=== PATIENT | male | born 1960 | race Caucasian/White ===

== ENCOUNTER 2016-08-14 11:01 | Day surgery (SDC) | payer BC ==
[~2016-08-14 11:01] MED LIST: CELEBREX200 M1 PO; HYDROCODON-ACE1 EA17 PO; NEURONTIN300 M1 PO; OMEPRAZOLE20 M4 PO; TAMSULOSIN HCL0.4 M1 PO
== END 2016-08-14 20:05 ==
LOC: SRG 11:01 → SHSC 11:04 → ORW 13:51 → PACU 15:53 → SHSC 17:30
PROC: 0WUF4JZ Supplement Abdominal Wall with Synthetic Substitute, Percutaneous Endoscopic Approach (ICD-10-PCS; principal; 2016-08-14)
PROC: 0WUF4JZ Supplement Abdominal Wall with Synthetic Substitute, Percutaneous Endoscopic Approach (ICD-10-PCS; 2016-08-14)
PROC: 8E0W4CZ Robotic Assisted Procedure of Trunk Region, Percutaneous Endoscopic Approach (ICD-10-PCS; 2016-08-14)
DX: K43.0 Incisional hernia with obstruction, without gangrene (principal); K43.9 Ventral hernia without obstruction or gangrene; F17.210 Nicotine dependence, cigarettes, uncomplicated; K21.9 Gastro-esophageal reflux disease without esophagitis; M15.9 Polyosteoarthritis, unspecified; E66.9 Obesity, unspecified; Z68.29 Body mass index [BMI] 29.0-29.9, adult; Z79.899 Other long term (current) drug therapy; Z98.890 Other specified postprocedural states
CPT/HCPCS: C1781; J0690; J1170; J1885; J3010